=== PATIENT | female | born 1980 | race Caucasian/White ===

== ENCOUNTER 2016-02-20 12:01 | Emergency (ER) | payer OTHER ==
[2016-02-20 13:02] VITALS: TEMP 97.7; BMI 31.9
[2016-02-20 13:17] LABS: MPV 7.3 fL (7.4-10.4)
[2016-02-20 13:26] LABS: BLOOD UREA NITROGEN 6 MG/DL (7-17); CALC CORRECTED 9.6 MG/DL (8.4-10.2); CALCIUM 8.5 MG/DL (8.4-10.2); CALCULATED OSMOLALITY 267 MOs/Kg (270-290); CHLORIDE 109 mEq/L (98-107); GLUCOSE 95 MG/DL (70-99); SODIUM LEVEL 140 mEq/L (137-146); TOTAL PROTEIN 6.3 G/DL (6.3-8.2)
[2016-02-20 13:47] LABS: SEG NEUTROPHIL 80 % (45-76)
[2016-02-20] MEDS ORDERED: HYDROCODONE 5 MG/ACETAMIN 325 MG TAB PO ONE ×2 (13:51→16:07)
--- NOTE | 2016-02-20 13:58 | EDPRACDOC ---
- General Information Chief Complaint: Lower Leg Pain Stated Complaint: RT LEG REDDENED AND SWOLLEN Time Seen by Provider: 02/20/16 13:32 Information Source: Patient Mode Of Arrival: Car Home Medications: Home Medications Diphenhydramine [Benadryl] 50 mg PO HS 05/06/15 Gabapentin [Neurontin] 300 mg PO QID 05/06/15 Hydrocodone Bit/Acetaminophen [[place] 5-325 Tablet] 1 tab PO Q4H PRN 05/06/15 Vits W-Ca,Fe,FA(<1Mg) [] 1 tab PO DAILY 05/06/15 Calcium Carbonate [Tums] 300 mg PO DAILY PRN 02/20/16 Cephalexin Monohydrate [Keflex] 500 mg PO Q6H #28 cap 02/20/16 Docusate Sodium 100 mg PO DAILY PRN 02/20/16 Hydrocodone/Acetaminophen [Lortab 5-325 mg Tablet] 1 each PO Q6 #14 tablet 02/19 Melatonin/Pyridoxine HCl (B6) [Melatonin 10 mg Tablet] 1 tab PO QHS 02/20/16 Omeprazole 20 mg PO DAILY 02/20/16 Allergies/Adverse Reactions: Allergies Allergy/AdvReac Type Severity Reaction Status Date / Time amoxicillin Allergy Hives* Verified 02/20/16 13:57 ciprofloxacin Allergy Hives* Verified 02/20/16 13:57 Penicillins Allergy Hives* Verified 02/20/16 13:57 - History of Present Illness Onset: 3 days HPI: PT PRESENTS WITH RIGHT LEG SWELLING, AND REDNESS THAT SHE STATES BEGAN 3 DAYS AGO. PT STATES SHE HAD AN UPPER RESPIRATORY INFECTION ABOUT 5 DAYS AGO AND THAT SHE SNEEZED ONCE AND FELT A POP IN THE RIGHT GROIN AREA. LATER IS WHEN SHE NOTED THE REDNESS AND EDEMA. STATES SHE HAS HAD SOME INCREASE IN SHOB. PT IS 32 WEEKS . Mechanism: Reports: None, Unknown Circumstances: Reports: Spontaneous History of: Reports: None Last Tetanus: Unknown Severity: Reports: Moderate Able to Bear Weight: Limited Associated Signs & Symptoms: Reports: Swelling Pain In: Reports: Foot, Ankle, Leg ED Past Medical History - History Reviewed Yes Nurses notes reviewed and agree except as marked - Patient Medical History Psychological History: Denies: Depression Surgical History: Reports: Tonsillectomy/Adnoidectomy - Social Medical History Smoking Status: Heavy tobacco smoker (5 or more cigarettes/day or daily pipe/ cigar) Social History: Denies: Amphetamine Use, Barbiturate Use, Benzodiazipine Use, Cocaine Use, Heroin Use EDM Review of Systems - Review of Systems ROS Negative Except as Marked: Yes All systems reviewed and were negative except as marked - Physical Exam Constitutional: Alert Oriented to: Time, Person, Place Last recorded Vital Signs: Last Vital Signs Temp 97.7 F 02/20/16 12:59 Pulse 105 02/20/16 12:59 Resp 18 02/20/16 12:59 BP 119/59 L 02/20/16 12:59 Pulse Ox 94 02/20/16 12:59 Oxygen Pulse Oxygen Saturation 94 O2 Device Room Air Oxygen Flow Rate Fraction of Inspired Oxygen ( FIO2) - HEENT Head: Normal ( normocephalic) Eye Exam: Normal (PERRL, EOMI, Sclera white) Oropharynx: Normal (Pharynx:Moist without exudate,Gums-no swelling) Tympanic Membrane: Normal Nose: No Symptoms Reported (septum midline) Neck: Normal (FROM, trachea at midline) - Respiratory/Cardiovascular Respiratory: Normal - CTA (BBS clear to auscultation without adventitious sounds ) Cardiovascular: Normal (RRR without murmur, gallop or rub) - GI Auscultation: Normal (NABS) Palpation: Normal (Soft,No rebound or guarding, non distended) Tenderness: Non tender Florentino's Sign: Negative Rectal Exam: Deferred - Musculoskeletal Back: Normal (Non-Tender) Extremities: Pedal Edema (2+ PITTING), Pedal Pulse (2+), Other (REDNESS AND EDEMA NOTED ON THE ENTIRE RIGHT LEG) - Integumentary Skin: Normal, Warm, Dry Lymphatics: Normal (no adenopathy) - Neurologic Memory Impaired: Normal Motor Function: Normal (Normal tone, Pulses 2+ No cyanosis or edema, FROM) Cranial Nerve: Normal (CN II-X11 intact sensation, strength 5/5) Cerebellar: Normal Mood Description: Normal Perception: Normal - Differential Diagnosis Other - Results 02/20/16 13:00 02/20/16 13:00 WBC 13.6 xk/uL (3.8-10.8) H 02/20/16 13:00 RBC 3.33 xM/uL (4.20-5.40) L 02/20/16 13:00 Hgb 10.7 g/dL (12.0-16.0) L 02/20/16 13:00 Hct 31.0 % (36-47) L 02/20/16 13:00 MCV 93 fL (81-99) 02/20/16 13:00 MCH 32.1 pg (27-32) H 02/20/16 13:00 MCHC 34.5 g/dl (33-36) 02/20/16 13:00 RDW 13.2 % (11.5-14.5) 02/20/16 13:00 Plt Count 310 xk/uL (130-400) 02/20/16 13:00 MPV 7.3 fL (7.4-10.4) L 02/20/16 13:00 Neut % (Auto) Cancelled 02/20/16 13:00 Lymph % (Auto) Cancelled 02/20/16 13:00 [place] % (Auto) Cancelled 02/20/16 13:00 Eos % (Auto) Cancelled 02/20/16 13:00 Baso % (Auto) Cancelled 02/20/16 13:00 Absolute Neuts (auto) Cancelled 02/20/16 13:00 Absolute Lymphs (auto) Cancelled 02/20/16 13:00 Seg Neuts % (Manual) 80 % (45-76) H 02/20/16 13:00 Band Neutrophils % 4 % (0-5) 02/20/16 13:00 Lymphocytes % (Manual) 9 % (17-44) L 02/20/16 13:00 Monocytes % (Manual) 6 % (0-10) 02/20/16 13:00 Eosinophils % (Manual) 1 % (0-5) 02/20/16 13:00 Absolute Neutrophils 11.42 xk/uL (1.7-8.2) H 02/20/16 13:00 Absolute Lymphocytes 1.22 xk/uL (0.65-4.75) 02/20/16 13:00 Vacuolated Neuts 1+ 02/20/16 13:00 Platelet Estimate Norm (NORMAL) 02/20/16 13:00 RBC Morphology Norm 02/20/16 13:00 Sodium 140 mEq/L (137-146) 02/20/16 13:00 Potassium 3.3 mEq/L (3.5-5.1) L 02/20/16 13:00 Chloride 109 mEq/L (98-107) H 02/20/16 13:00 Carbon Dioxide 21 mMOL/L (22-33) L 02/20/16 13:00 Anion Gap 13 mEq/L (8-16) 02/20/16 13:00 BUN 6 MG/DL (7-17) L 02/20/16 13:00 Creatinine 0.50 MG/DL (0.52-1.04) L 02/20/16 13:00 Estimated GFR (MDRD) > 60 mL/min (>=60) 02/20/16 13:00 Glucose 95 MG/DL (70-99) 02/20/16 13:00 Calculated Osmolality 267 MOs/Kg (270-290) L 02/20/16 13:00 Calcium 8.5 MG/DL (8.4-10.2) 02/20/16 13:00 Corrected Calcium 9.6 MG/DL (8.4-10.2) 02/20/16 13:00 Total Bilirubin 0.3 MG/DL (0.2-1.3) 02/20/16 13:00 AST 28 IU/L (14-36) 02/20/16 13:00 ALT 33 IU/L (9-52) 02/20/16 13:00 Alkaline Phosphatase 119 IU/L (38-126) 02/20/16 13:00 Total Protein 6.3 G/DL (6.3-8.2) 02/20/16 13:00 Albumin 2.9 G/DL (3.5-5.0) L 02/20/16 13:00 Lab Results 02/20/16 02/20/16 13:00 13:00 WBC 13.6 H RBC 3.33 L Hgb 10.7 L Hct 31.0 L MCV 93 MCH 32.1 H MCHC 34.5 RDW 13.2 Plt Count 310 MPV 7.3 L Neut % (Auto) Cancelled Lymph % (Auto) Cancelled [place] % (Auto) Cancelled Eos % (Auto) Cancelled Baso % (Auto) Cancelled Absolute Neuts (auto) Cancelled Absolute Lymphs (auto) Cancelled Seg Neuts % (Manual) 80 H Band Neutrophils % 4 Lymphocytes % (Manual) 9 L Monocytes % (Manual) 6 Eosinophils % (Manual) 1 Absolute Neutrophils 11.42 H Absolute Lymphocytes 1.22 Vacuolated Neuts 1+ Platelet Estimate Norm RBC Morphology Norm Sodium 140 Potassium 3.3 L Chloride 109 H Carbon Dioxide 21 L Anion Gap 13 BUN 6 L Creatinine 0.50 L Estimated GFR (MDRD) > 60 Glucose 95 Calculated Osmolality 267 L Calcium 8.5 Corrected Calcium 9.6 Total Bilirubin 0.3 AST 28 ALT 33 Alkaline Phosphatase 119 Total Protein 6.3 Albumin 2.9 L Decision Time to Discharge: 15:35 - Departure Disposition: Home Condition: Stable Final Diagnosis: Cellulitis of right leg Instructions: Cellulitis (ED) Education/Counseling Given To: Patient Education/Counseling Given Regarding: Diagnosis, Treatment, Prognosis, Follow Up Referrals: Yecenia Zarate MD [Primary Care Provider] - One Week Prescriptions: Cephalexin Monohydrate [Keflex] 500 mg PO Q6H #28 cap Hydrocodone/Acetaminophen [Lortab 5-325 mg Tablet] 1 each PO Q6 #14 tablet Additional Instructions: INCREASE FLUID INTAKE. FOLLOW UP WITH PRIMARY CARE PROVIDER NEXT WEEK. TAKE ALL ANTIBIOTICS PRESCRIBED. RETURN TO THE ED FOR WORSENING SYMPTOMS OR CONCERNS. ELEVATE LEG MUCH POSSIBLE. FOLLOW UP WITH PCP IN TWO DAYS OR RETURN TO THE ED FOR RE-EVALUATION. RETURN SOONER FOR WORSENING SYMPTOMS OR CONCERNS.
[2016-02-20 14:32] LABS: CA OXALATE 1+; LEUKOCYTES/URINE TRACE (NEGATIVE); NITRITE/URINE NEG (NEGATIVE); URINE OCCULT BLOOD NEG (NEG/TRACE)
[2016-02-20] MEDS ORDERED: CEPHALEXIN 500 MG CAP PO ONE (15:06)
--- NOTE | 2016-02-20 15:33 | DIRPT ---
CLINICAL DATA: Patient with right leg pain and swelling. EXAM: RIGHT LOWER EXTREMITY VENOUS DOPPLER ULTRASOUND TECHNIQUE: Saleh-scale sonography with graded compression, as well as color Doppler and duplex ultrasound were performed to evaluate the lower extremity deep venous systems from the level of the common femoral vein and including the common femoral, femoral, profunda femoral, popliteal and calf veins including the posterior tibial, peroneal and gastrocnemius veins when visible. The superficial great saphenous vein was also interrogated. Spectral Doppler was utilized to evaluate flow at rest and with distal augmentation maneuvers in the common femoral, femoral and popliteal veins. COMPARISON: None. FINDINGS: Contralateral Common Femoral Vein: Respiratory phasicity is normal and symmetric with the symptomatic side. No evidence of thrombus. Normal compressibility. Common Femoral Vein: No evidence of thrombus. Normal compressibility, respiratory phasicity and response to augmentation. Saphenofemoral Junction: No evidence of thrombus. Normal compressibility and flow on color Doppler imaging. Profunda Femoral Vein: No evidence of thrombus. Normal compressibility and flow on color Doppler imaging. Femoral Vein: No evidence of thrombus. Normal compressibility, respiratory phasicity and response to augmentation. Popliteal Vein: No evidence of thrombus. Normal compressibility, respiratory phasicity and response to augmentation. Calf Veins: No evidence of thrombus. Normal compressibility and flow on color Doppler imaging. Superficial Great Saphenous Vein: No evidence of thrombus. Normal compressibility and flow on color Doppler imaging. Venous Reflux: None. Other Findings: There is a prominent right inguinal lymph node measuring 2.9 cm. IMPRESSION: No evidence of deep venous thrombosis. Prominent right inguinal lymph node which is likely reactive in etiology. Electronically Signed By: Dominick Troncoso M.D. On: 02/20/2016 15:30
[2016-02-20 16:02] VITALS: BP 109/69; PULSE 94
== END 2016-02-20 16:05 | disposition home or self-care (01) ==
LOC: ED 12:01
DX: L03.115 Cellulitis of right lower limb (principal)
CPT/HCPCS: 36415; 80053; 81001; 83605; 85007; 85027; 85379; 87040; 93971; 99284; J3490